=== PATIENT | female | born 1955 | race Caucasian/White ===

== ENCOUNTER 2025-01-02 11:55 | Emergency (ER) | payer MEDICARE, OTHER ==
[~2025-01-02] VITALS: Ht 160 cm; Wt 74.4 kg
[2025-01-02] MEDS: IV NORMAL SALINE 1000 ML BAG IV ONE (12:00)
[2025-01-02] MEDS: DEXAMETHASONE SOD PHOSPHATE 4 MG INJ IV ONE (12:00)
[2025-01-02] MEDS: ACETAMINOPHEN 500 MG TABLET PO ONE (12:00)
[2025-01-02 12:17] LABS: BASOPHILS % (AUTO) 0.4 % (0.0-2.0); EOSINOPHILS # (AUTO) 0.1 K/uL (0.0-0.7); EOSINOPHILS % (AUTO) 1.1 % (0.0-7.0); HEMATOCRIT 36.1 % (31.2-41.9); HEMOGLOBIN 12.2 g/dL (10.9-14.3); LYMPHOCYTES # (AUTO) 0.6 K/uL (0.8-4.8); LYMPHOCYTES % (AUTO) 8.8 % (20.5-51.5); MEAN CORPUSCULAR HGB CONC 34 g/dL (32.3-35.6); MEAN CORPUSCULAR VOLUME 82.5 fL (75.5-95.3); MONOCYTES # (AUTO) 0.2 K/uL (0.1-1.30); MONOCYTES % (AUTO) 2.3 % (0.0-11.0); NEUTROPHILS # (AUTO) 6.1 K/uL (1.8-8.9); NEUTROPHILS % (AUTO) 87.4 % (38.5-71.5); PLATELET COUNT (AUTO) 232 K/uL (179-408); RED BLOOD CELL COUNT(AUTO) 4.38 MIL/uL (3.63-4.92); RED CELL DISTRIBUTION WIDTH 14.7 % (12.3-17.7); WHITE BLOOD COUNT (AUTO) 6.9 K/uL (3.8-11.8)
[2025-01-02 12:25] LABS: CALCIUM 9.4 mg/dL (8.5-10.1); CREATININE 0.6 mg/dL (0.6-1.3); POTASSIUM 3.9 mmol/L (3.5-5.1)
[2025-01-02 12:27] LABS: DIFFERENTIAL COMMENT 1
[2025-01-02] MEDS ORDERED: KETO120S5 TP (12:43)
[2025-01-02] MEDS ORDERED: METH2.5T PO (12:43)
[2025-01-02] MEDS ORDERED: FLUO118.7 TP (12:43)
[2025-01-02] MEDS ORDERED: FOLI1TAB94 PO (12:43)
[2025-01-02] MEDS ORDERED: MINO2.5T PO (12:43)
[2025-01-02] MEDS ORDERED: TRIA15OI9 TP (12:43)
[2025-01-02] MEDS ORDERED: METF-440 PO (12:43)
[2025-01-02] MEDS ORDERED: GABA300C PO (12:43)
[2025-01-02] MEDS ORDERED: LEVO100T10 PO (12:43)
[2025-01-02] MEDS ORDERED: HYDR-501 PO (12:43)
[2025-01-02] MEDS ORDERED: FLUC150T PO (12:43)
[2025-01-02] MEDS ORDERED: CITA40TA11 PO (12:43)
[2025-01-02] MEDS ORDERED: TRAZ-182 PO (12:43)
[2025-01-02] MEDS ORDERED: diphenhydrAMINE 25 MG/10 ML UDC ONE (13:21)
[2025-01-02] MEDS ORDERED: ACETAMINOPHEN 500 MG TABLET ONE (13:21)
[2025-01-02] MEDS ORDERED: METOCLOPRAMIDE HCL 10 MG/2 ML VIAL ONE (13:21)
[2025-01-02] MEDS ORDERED: DEXAMETHASONE SOD PHOSPHATE 4 MG INJ ONE (13:21)
[2025-01-02] MEDS ORDERED: KETOROLAC TROMETHAMINE 15 MG INJ ONE (13:22)
[2025-01-02] MEDS ORDERED: diphenhydrAMINE 50 MG/1 ML VIAL ONE (13:22)
[2025-01-02] MEDS: KETOROLAC TROMETHAMINE 15 MG INJ IVP ONE (13:39)
[2025-01-02] MEDS: diphenhydrAMINE 50 MG/1 ML VIAL IV ONE (13:39)
[2025-01-02] MEDS: METOCLOPRAMIDE HCL 10 MG/2 ML VIAL IV ONE (13:39)
[2025-01-02 15:31] VITALS: BP 110/60; TEMP 98; O2SAT 98
== END 2025-01-02 15:00 | disposition home or self-care (01) ==
LOC: ER 11:55 → EDBD 11:55 → ER 15:00
DX: R51.9 Headache, unspecified (principal); R06.00 Dyspnea, unspecified; E11.9 Type 2 diabetes mellitus without complications; Z79.631 Long term (current) use of antimetabolite agent; Z79.84 Long term (current) use of oral hypoglycemic drugs; Z79.890 Hormone replacement therapy; Z79.899 Other long term (current) drug therapy
CPT/HCPCS: 99285; 96374; 96375; 70450; 71045; 96361; 80048; 82962; 85025; 36415; 93005; J1885; Q0163; J1100; J1200; J2765; A4606; A4663; A9150